=== PATIENT | male | born 1945 | race Caucasian/White ===

== ENCOUNTER 2020-12-24 09:39 | IRF | payer MEDICARE, SELFPAY ==
--- NOTE | ~2020-12-24 | XR_ITS ---
EXAMINATION: XR knee RT 3V DATE: 12/26/2020 18:45 INDICATION: Fall onto the stump of a right wvxcw-bqb-ixgh amputation. TECHNIQUE: Anteroposterior, oblique and crosstable lateral views of the right knee were obtained COMPARISON: None. FINDINGS: Right total knee arthroplasty without patellar resurfacing which is in near-anatomic alignment with p eriprosthetic loosening or infection. There is also been prior aynaj-uvt-myjw amputation with sharp o steotomy margins at the proximal metadiaphyseal regions of the right tibia and fibula. Small amount o f heterotopic ossification in the surrounding soft tissues. No fracture. No right knee joint effusion . There are sclerotic osseous lesions along the right femoral and popliteal arteries. Likely prior ar terial bypass grafting. IMPRESSION: 1. Postoperative changes of prior right total knee arthroplasty and pwerj-dtl-cmla amputation. No acu te osseous abnormality. Reviewed, dictated and finalized at location A. IMPRESSION: 1. Postoperative changes of prior right total knee arthroplasty and below-the-k nee amputation. No acute osseous abnormality.
[2020-12-24 09:11] VITALS: BP 123/59; PULSE 62; RESP 20; TEMP 36; O2SAT 95; BMI 30.6
--- NOTE | 2020-12-24 10:30 | ADMGEN ---
This patient, Bernardino Ricci, was admitted to [facility] Room 226-02. Patient/family oriented to hospital policies and general routines including ID bracelet, bed and alarms, visiting hours, pain management, procedures, bathroom and other care routines, personal items, smoking policy, room service/diet, and visiting hours. Information on how to activate the Rapid Response Team has been discussed. Patient/Family are encouraged to report perceived risks to care and to ask questions if they do not understand what they are told or what they should do.
[2020-12-24 12:22] VITALS: PULSE 62; RESP 20; O2SAT 95
--- NOTE | 2020-12-24 13:09 | WPDREHABHP ---
H&P: HPI History of Present Illness Date/Time: 12/24/20 13:09 Chief Complaint: Right below-knee amputation Narrative: HISTORY OF PRESENT ILLNESS: The patient's primary rehab impairment category is 10 amputation lower extremity The etiologic diagnosis is peripheral vascular disease I saw this patient [id number] on 12/24/2020 The patient is a 75-year-old male with past medical history significant for osteoarthritis, rheumatoid arthritis, hypertension, chronic kidney disease and peripheral vascular disease who underwent a right below-knee amputation on 09/21/[address] Rothman vascular surgeon at [facility]. Patient then went to the rehab [place] [facility] [place]. Patient received his new right transtibial prosthesis on 12/19/2020 from [facility] in [facility]. Patient has been wearing a compression stump metal patternmaker all day. The patient lives alone and has support from his daughter and DESTINI Auguste. He receives assistance from a Help at Home through department of aging. He receives 3 days a week for a total of 10 hours a week. Prior to this patient's was at and modified independent to min assist level. Patient's overall goal is to play golf and walk the green. Patient is requiring intensive therapy to restore loss function due to provision of his new prosthetic leg in order to maximize his functional level of independence and quality of life. The complexity of the patient's needs require an inpatient rehab stay with a physician lead inter disciplinary team approach. Skilled physical therapy will address gait training, mobility training, transfer training, stair training, balance retraining, car transfer training, progressive lower extremity strengthening, and they will assist for assistive device needs and develop a home exercise program. [facility] prosthetics is also available for any bracing or prosthetic needs or adjustments. Occupational therapy will address ADLs, precautions and safety education, functional ability, DME education, progressive upper extremity strengthening, balance, endurance, energy conservation and work simplification training along with family training. Patient will greatly benefit from an intensive 5 day program for prosthetic training. FALLS OR SURGERIES: The patient has had major surgery in the last 100 days consisting of a right below-knee amputation. Patient has had no falls or injuries in the last year PRIOR LEVEL OF FUNCTION: Eating was [INDEPENDENT] Oral Care was independent Toileting Hygiene was independent Shower/Bathing was and Upper Body Dressing was INDEPENDENT Lower Body Dressing was independent Footwear is independent. Rolling Left and Right was [INDEPENDENT] Sit to Lying was [INDEPENDENT] Lying to Sitting was [INDEPENDENT] Sit to Stand was independent Bed to Chair Transfers was independent Toilet Transfers was independent Walking was independent 500 ft prior to amputation Wheelchair Mobility was [NOT APPLICABLE PRIOR TO ADMISSION] Stairs were [INDEPENDENT] CURRENT LEVEL OF FUNCTION: Eating was independent Oral Care was supervision Toileting Hygiene was partial to mod assist Shower/Bathing was partial to mod assist Upper Body Dressing was independent Lower Body Dressing was partial to mod assistance in standing Donning/Orient Footwear was partial to mod assistance in standing Rolling Left and Right was independent Sit to Lying was independent Lying to Sitting was independent Sit to Stand was partial to mod assist Bed to Chair Transfers were partial to mod assist Toilet Transfers were partial to mod assist Walking was 15 ft within the parallel bars Wheelchair Mobility was not tested Stairs were not tested GOALS: Our therapists will evaluate the patient and establish the goals. However, upon pre-admission screening, the expected goals were to be [INDEPENDENT] with self-care, [INDEPENDENT] with transfers, and [INDEPENDENT] with functional mobility
--- NOTE | 2020-12-24 13:53 | PHAR ---
The patient's home med of Quinapril 20mg has been verified.
[2020-12-24 14:00] VITALS: BP 154/62; PULSE 62; RESP 20; TEMP 35.9; O2SAT 95
--- NOTE | 2020-12-24 19:29 | RPD ---
INDIVIDUALIZED PLAN OF CARE FOR Bernardino Ricci Brief Synthesis of Pre-Admission Screen, Post-Admission Evaluation and Therapy Evaluations: The patient presents to rehab for prosthetic training program from peripheral vascular disease s/p right BKA. The patient received new prosthesis through [facility]. Comorbidities include PVD, rheumatoid and osteoarthritis, phantom pain, HTN, CKD, DDD, GERD, HLD, HTN, obesity, PAD, and tobacco use. The complexity of the patient's needs require an inpatient rehab hospital stay with a physician-led interdisciplinary team approach. The patient?s needs will be best met in an intensive program vs. at a lower level of care. The patient requires physician services for medical oversight, coordination of care, and pain management. His medical status is subject to change given a sudden dramatic cha0ge in activity level. The patient requires nursing services for infection protection, medication management, skin integrity management and care, and patient education. He will require close monitoring of his hypertension and CKD as well as his skin integrity in light of this change in mobility Deficits include: ADLs, Balance, Endurance, Family Training/Education, Mobility, Pain Management, ROM, Safety, Strength, and Transfers Lamp Shade Maker/Case Management for: Discharge Planning and Patient/Family Counseling Physical Therapy: 5 days per week for 90 minutes. Treatments may include: Therapeutic Exercise, Gait Training, Neuromuscular Re-education, Transfer Training, Community Reintegration, Bed Mobility, Patient/Family Education, Wheelchair Mobility Group Therapy/Concurrent Therapy Rationales: -Improve attention span during functional activities in a distracted environment. -Enhance problem solving and/or adequate judgment skills during functional activities in a distracted environment. -Promote increased safety awareness in a distracted environment to reduce fall risk with functional tasks, transfers, and ambulation to allow a more safe, self-sufficient return to the home environment. -Improve dynamic balance skills to promote safety and independence with functional activities in a distracted environment for maximum gain. Occupational Therapy: 5 days per week for 90 minutes. Treatments may include: Therapeutic Exercise, Therapeutic Activity, Cognitive Training, Self-Care Transfer Training, Community Reintegration, Home Management, Patient/Family Education, Wheelchair Mobility Training, Energy Conservation Training Group Therapy/Concurrent Therapy Rationales: -Allow therapist to observe and teach generalization and carry-over of skills learned in individual therapy. -Enhance problem solving and sequencing skills during therapeutic activities in a distracted environment. -Promote increased safety awareness in a realistic setting to reduce fall risk with functional tasks due to visual and verbal distractions. -Increase functional level with ADLs, ADL transfers and use of adaptive equipment through therapeutic activities with others while promoting safety to allow a more safe, self-sufficient return home. Medical Prognosis: Good Anticipated Length of Stay: 5 days Rehab Goals: Eating Goal: 06-Independent Oral Hygiene Goal: 06-Independent Toileting Hygiene Goal: 06-Independent Shower/Bathe Self Goal: 06-Independent Upper Body Dressing Goal: 06-Independent Lower Body Dressing Goal: 06-Independent Putting On/Taking Off Footwear Goal: 06-Independent Rolling Left and Right Goal: 06-Independent Sit to Lying Goal: 06-Independent Lying to Sitting on Side of Bed Goal: 06-Independent Sit to Stand Goal: 06-Independent Chair/Brg-xv-Xbrpd Transfer Goal: 06-Independent Toilet Transfer Goal: 06-Independent Car Transfer Goal: 06-Independent Walk 10' Goal: 06-Independent Walk 50' with Two Turns Goal: 06-Independent Walk 150' Goal: 06-Independent Walk 10' on Uneven Surface Goal: 06-Independent 1 Step (Curb) Goal: 06-Independent 4 Steps Goal: 06
[2020-12-24 22:00] VITALS: BP 150/65; PULSE 56; RESP 16; TEMP 36.1; O2SAT 98
[2020-12-25 05:05] LABS: Basophils Absolute Auto 0.1 K/mm3 (0.0-0.1); Eosinophils Absolute Auto 0.4 K/mm3 (0-0.3); Hematocrit 36.1 % (42.0-52.0); Hemoglobin 11.8 g/dL (14.0-18.0); Immature Granulocyte Absolute 0.01 K/mm3 (0.00-0.031); Immature Granulocyte Percent A 0.2 % (0-0.5); Lymphocytes Percent Auto 38.5 % (18.3-44.2); Mean Corpuscular HGB Conc 32.7 g/dl (32-36); Mean Corpuscular Hemoglobin 29.3 pg (26-34); Mean Corpuscular Volume 89.6 fl (80-100); Mean Platelet Volume 12.2 fl (7.4-10.4); Monocytes Absolute Auto 0.8 K/mm3 (0.1-0.6); Monocytes Percent Auto 12.6 % (2.6-8.5); Neutrophils Absolute Auto 2.4 K/mm3 (1.3-6.7); Neutrophils Percent Auto 40.7 % (45.5-73.1); Platelet Count Result 152 k/mm3 (150-375); Red Blood Count 4.03 M/mm3 (4.6-6.20); Red Cell Distribution Width 16.8 % (11.5-14.5)
[2020-12-25 05:12] LABS: Alanine Aminotransferase 12 U/L (4-50); Albumin Level 3.5 g/dL (3.5-5.1); Alkaline Phosphatase 72 U/L (38-126); Anion Gap 4 mmol/L (8-16); Aspartate Amino Transferase 24 U/L (17-59); Bilirubin,Total 0.3 mg/dL (0.2-1.3); Blood Urea Nitrogen 23 mg/dL (9-20); Calcium 9.3 mg/dL (8.4-10.2); Carbon Dioxide 28 mmol/L (22-30); Chloride 108 mmol/L (98-107); Estimated CRCL calculation 52 ml/min; Estimated Glomerular Filt Rate 59; Glucose 93 mg/dL (75-110); Potassium 4.1 mmol/L (3.4-5.0); Sodium 140 mmol/L (137-145)
[2020-12-25 06:00] VITALS: BP 178/62; PULSE 68; RESP 16; TEMP 36.1; O2SAT 98
[2020-12-25] MEDS: UMECLIDINIUM/VILANTEROL 62.5-25 MCG ELLIPTA 1 PUFF INHALATION (08:49)
[2020-12-25 09:18] VITALS: PULSE 68
[2020-12-25] MEDS: ASPIRIN 81 MG ENTERIC TABLET PO (09:18)
[2020-12-25] MEDS: atenoloL 50 MG TABLET PO (09:18)
[2020-12-25] MEDS: FOLIC ACID 1 MG TABLET PO (09:18)
[2020-12-25] MEDS: ATORVASTATIN 40 MG TABLET PO (09:20)
--- NOTE | 2020-12-25 11:28 | WPDNEURORHBP ---
Subjective Date/time seen: 12/25/20 11:28 Interval history: DX Right BKA The patient is a 75-year-old male with past medical history significant for osteoarthritis, rheumatoid arthritis, hypertension, chronic kidney disease and peripheral vascular disease who underwent a right below-knee amputation on 09/21/[address] Rothman vascular surgeon at [place]. Patient then went to the rehab [place] [facility] [place]. Patient received his new right transtibial prosthesis on 12/19/2020 from [facility] in [facility]. Patient has been wearing a compression stump cooperer all day. The patient lives alone and has support from his daughter and DESTINI Auguste. He receives assistance from a Help at Home through department of aging. He receives 3 days a week for a total of 10 hours a week. Prior to this patient's was at and modified independent to min assist level. Patient's overall goal is to play golf and walk the green. Patient is requiring intensive therapy to restore loss function due to provision of his new prosthetic leg in order to maximize his functional level of independence and quality of life. The complexity of the patient's needs require an inpatient rehab stay with a physician lead inter disciplinary team approach. Skilled physical therapy will address gait training, mobility training, transfer training, stair training, balance retraining, car transfer training, progressive lower extremity strengthening, and they will assist for assistive device needs and develop a home exercise program. [facility] prosthetics is also available for any bracing or prosthetic needs or adjustments. Occupational therapy will address ADLs, precautions and safety education, functional ability, DME education, progressive upper extremity strengthening, balance, endurance, energy conservation and work simplification training along with family training. Patient will greatly benefit from an intensive 5 day program for prosthetic training. 12/25/20 patient voices no complaints. Team Conference: Patient is at contact guard with ADLs. Patient is at contact guard with transfers gait and stairs. Barriers include endurance, balance deficits,. Prosthesis was adjusted by Parul from [facility] this morning. we are anticipating patient to be modified independent with all activities daily living gait and mobility. Discharge date will be Thursday12/29/2020 patient would benefit from outpatient physical therapy. Review of Systems Constitutional: Constitutional: Reports no additional constitutional complaints Functional Status Ambulation Ability Ability to Ambulate 10 Feet: Standby Assistance Ability to Ambulate 50 Feet With 2 Turns: Standby Assistance Ability to Ambulate 150 Feet: Contact Guard Ambulation Assistive Devices: Walker, Wheeled Exam Narrative: Exam Narrative: patient is pleasant and in no acute distress. Head is normocephalic. External ocular muscles are intact. Neck is supple. Speech is fluent. Heart rate and rhythm is regular. Lungs are clear. Abdomen is obese. Upper extremity strength are 5/5. Right lower extremity strength shows a well-healed right total knee incision and signs of graft most likely from bypass surgery. Right below-knee amputation incision is completely healed. Shape being of the stump is excellent. Strength is 4/4. Left lower extremity strength is 4+ out of 5. No edema is noted. Objective Data Vital Signs Vital Signs: Vital Signs - 24 hr 12/24/20 12:22 12/24/20 14:00 12/24/20 22:00 Temperature 35.9 C L 36.1 C L Pulse Rate 62 62 56 L Respiratory Rate 20 20 16 Blood Pressure 154/62 H 150/65 H Pulse Oximetry 95 95 98 12/25/20 06:00 12/25/20 09:18 Temperature 36.1 C L Pulse Rate 68 68 Respiratory Rate 16 Blood Pressure 178/62 H Pulse Oximetry 98 Intake/Output Intake/Output: Intake & Output 12/22/20 12/23/20 12/24/20 12/25/20 23:59 23:59 23:59 23:59 Intake Total 480 480 Balance 480 480 Meds/Results Medi
[2020-12-25 12:18] VITALS: BMI 30.6
--- NOTE | 2020-12-25 12:53 | PCNSR ---
On 12/25/20, the student,Elis Plummer, provided care and completed [facility] documentation on this patient. I have reviewed the student's documentation and agree with the findings.
[2020-12-25 13:25] VITALS: BP 165/62; PULSE 67; RESP 18; TEMP 36.4; O2SAT 97
--- NOTE | 2020-12-25 17:21 | PM.IMCN ---
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: Code(s): I70.203 - Unspecified atherosclerosis of ramona arteries of extremities, bilateral legs Status: Acute (3) History of total right knee replacement: Code(s): Z96.651 - Presence of right artificial knee joint Status: Acute (4) Emphysema lung: Code(s): J43.9 - Emphysema, unspecified Status: Acute (5) Smoker: Code(s): F17.200 - Nicotine dependence, unspecified, uncomplicated Status: Acute (6) Hyperlipidemia: Code(s): E78.5 - Hyperlipidemia, unspecified Status: Acute (7) Hypertension: Code(s): I10 - Essential (primary) hypertension Status: Acute (8) Rheumatoid arthritis: Code(s): M06.9 - Rheumatoid arthritis, unspecified Status: Acute (9) Osteoarthritis: Code(s): M19.90 - Unspecified osteoarthritis, unspecified site Status: Acute (10) GERD (gastroesophageal reflux disease): Code(s): K21.9 - Gastro-esophageal reflux disease without esophagitis Status: Acute (11) Degenerative disc disease: Status: Acute (12) Peripheral vascular disease: Code(s): I73.9 - Peripheral vascular disease, unspecified Status: Acute (13) Chronic kidney disease: Code(s): N18.9 - Chronic kidney disease, unspecified Status: Acute (14) History of bilateral carpal tunnel release: Code(s): Z98.890 - Other specified postprocedural states Status: Acute (15) Hx of cholecystectomy: Code(s): Z90.49 - Acquired absence of other specified parts of digestive tract Status: Acute Additional Plan status post right BKA 02/2021 Hypertension Hyperlipidemia Current smoker Emphysema long Rheumatoid arthritis Osteoarthritis GERD Peripheral vascular disease Chronic kidney disease stage 3 Plan: Continue atenolol quinapril and hydrochlorothiazide for his high blood pressure Continue bronchodilators Continue atorvastatin continue Continue aspirin continue to monitor his blood pressure and adjust the medication as needed Thank you for the consultation will follow along with you HPI Data of Consult Consult date: 12/25/20 Requesting Physician: Meeta London DO Primary Care Provider: Ron Smith, Consult Narrative Narrative: Reason for consultation: Medical management Bernardino Ricci is a 75 year old male who is admitted to the rehab facility for gait training. He has a past medical history significant for osteoarthritis, rheumatoid arthritis, hypertension, chronic kidney disease, peripheral vascular disease and underwent a right below-knee amputation on 09/21/2020 at [facility]. He got his new right transtibial prosthesis on 12/19/2020 from [facility] in [facility] and is here for gait training with the prosthesis. He denies any chest pain shortness of breath abdominal pain nausea vomiting fever chills. he is continued on all his usual home medication. hospitalist team is consulted for continued medical management here while undergoing therapy Review of Systems Review of Systems: Narrative: - CONSTITUTIONAL: Denies weight loss, fever and chills. - HEENT: Denies changes in vision and hearing - RESPIRATORY: Denies SOB and cough. - CV: Denies palpitations and CP. - GI: Denies abdominal pain, nausea, vomiting and diarrhea. - : Denies dysuria and urinary frequency. - MSK: Denies myalgia and joint pain. - SKIN: Denies rash and pruritus. - NEUROLOGICAL: Denies headache and syncope. - PSYCHIATRIC: Denies recent changes in mood. Denies anxiety and depression. All systems reviewed & are unremarkable except as noted in HPI and below PMFS
[2020-12-25 22:00] VITALS: BP 133/54; PULSE 58; RESP 18; TEMP 35.9; O2SAT 97
[2020-12-26 06:00] VITALS: BP 130/63; PULSE 67; RESP 18; TEMP 35.9; O2SAT 97
[2020-12-26 08:41] VITALS: PULSE 67
[2020-12-26] MEDS: ASPIRIN 81 MG ENTERIC TABLET PO (08:41)
[2020-12-26] MEDS: FOLIC ACID 1 MG TABLET PO (08:41)
[2020-12-26] MEDS: atenoloL 50 MG TABLET PO (08:41)
[2020-12-26] MEDS: UMECLIDINIUM/VILANTEROL 62.5-25 MCG ELLIPTA 1 PUFF INHALATION (08:43)
[2020-12-26 14:00] VITALS: BP 153/61; PULSE 68; RESP 16; TEMP 36.5; O2SAT 98
--- NOTE | 2020-12-26 16:47 | WPDNEURORHBP ---
Subjective Date/time seen: 12/26/20 16:47 Interval history: Patient had fall in bathroom. Patient denies loss of consciousness. Patient admits to stump pain. Review of Systems Review of Systems: All systems reviewed & are unremarkable except as noted in HPI and below Functional Status Ambulation Ability Ability to Ambulate 10 Feet: Independent Ability to Ambulate 50 Feet With 2 Turns: Independent Ability to Ambulate 150 Feet: Independent Ambulation Assistive Devices: Cane and Walker, Wheeled Transfers Ability Ability to Transfer In/Out of Chair: Independent Exam Narrative: Exam Narrative: patient is pleasant and in no acute distress. External ocular muscles are intact. Neck is supple. Speech is fluent. Heart rate and rhythm is regular. Lungs are clear. Abdomen is obese. Upper extremity strength are 5/5. Right lower extremity strength shows a well-healed right total knee incision and signs of graft most likely from bypass surgery. Patient has small abrasion to distal stump. No bruising is noted. NO pain with ROM of touching of stump. Right side of head reveals redness. No bump noted. Right below-knee amputation incision is completely healed. Shape being of the stump is excellent. Strength is 4/4. Left lower extremity strength is 4+ out of 5. No edema is noted. Objective Data Vital Signs Vital Signs: Vital Signs - 24 hr 12/25/20 22:00 12/26/20 06:00 12/26/20 08:41 Temperature 35.9 C L 35.9 C L Pulse Rate 58 L 67 67 Respiratory Rate 18 18 Blood Pressure 133/54 L 130/63 Pulse Oximetry 97 97 12/26/20 14:00 Temperature 36.5 C Pulse Rate 68 Respiratory Rate 16 Blood Pressure 153/61 H Pulse Oximetry 98 Intake/Output Intake/Output: Intake & Output 12/23/20 12/24/20 12/25/20 12/26/20 23:59 23:59 23:59 23:59 Intake Total 480 1200 720 Balance 480 1200 720 Meds/Results Medications: Active Medications Generic Name Dose Route Start Last Admin Trade Name Freq PRN Reason Stop Dose Admin Aspirin 81 mg 12/25/20 09:00 12/26/20 08:41 Aspirin 81 Mg Enteric Tablet PO 81 mg DAILY LAURA Administration Atenolol 50 mg 12/25/20 09:00 12/26/20 08:41 Atenolol 50 Mg Tablet PO 50 mg DAILY LAURA Administration Atorvastatin Calcium 40 mg 12/24/20 09:00 12/25/20 09:20 Atorvastatin 40 Mg Tablet PO 40 mg Q48H LAURA Administration Folic Acid 1 mg 12/25/20 09:00 12/26/20 08:41 Folic Acid 1 Mg Tablet PO 1 mg DAILY LAURA Administration Umeclidinium/Vilanterol 1 puff 12/25/20 08:00 12/26/20 08:43 Umeclidinium/Vilanterol 62.5-25 Mcg Ellipta INHALATION 1 puff DAILYRT LAURA Administration Progress Note: A&P Assessment and Plan (1) Amputation of right lower extremity below knee: Code(s): S88.111A - Complete traumatic amputation at level between knee and ankle, right lower leg, initial encounter Status: Acute Assessment and Plan: PT OT nursing (2) 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 Patient believes he will be able to quit smoking but and does not wish to proceed with any counseling (6) Hyperlipidemia: Code(s): E78.5 - Hyperlipidemia, unspecified Status: Acute Assessment and Plan: Lipitor (7) Hypertension: Code(s): I10 - Essential (primary) hypertension S
[2020-12-26 22:00] VITALS: BP 162/72; PULSE 58; RESP 18; TEMP 36.4; O2SAT 98
[2020-12-27 06:00] VITALS: BP 181/83; PULSE 62; RESP 18; TEMP 36.8; O2SAT 98
[2020-12-27 09:01] VITALS: PULSE 62
[2020-12-27] MEDS: atenoloL 50 MG TABLET PO (09:01)
[2020-12-27] MEDS: ASPIRIN 81 MG ENTERIC TABLET PO (09:01)
[2020-12-27] MEDS: FOLIC ACID 1 MG TABLET PO (09:01)
[2020-12-27] MEDS: ACETAMINOPHEN 325 MG TABLET 650 MG PO (09:02)
[2020-12-27] MEDS: UMECLIDINIUM/VILANTEROL 62.5-25 MCG ELLIPTA 1 PUFF INHALATION (09:31)
[2020-12-27 10:09] VITALS: BP 158/92; PULSE 86; RESP 18; TEMP 36.7; O2SAT 100
--- NOTE | 2020-12-27 12:22 | WPDNEURORHBP ---
Subjective Date/time seen: 12/27/20 12:22 Interval history: DX Right BKA The patient is a 75-year-old male with past medical history significant for osteoarthritis, rheumatoid arthritis, hypertension, chronic kidney disease and peripheral vascular disease who underwent a right below-knee amputation on 09/21/[address] Rothman vascular surgeon at [place]. Patient then went to the rehab [facility] [place]. Patient received his new right transtibial prosthesis on 12/19/2020 from [facility] in [facility]. Patient has been wearing a compression stump shop foreman all day. The patient lives alone and has support from his daughter and DESTINI Auguste. He receives assistance from a Help at Home through department of aging. He receives 3 days a week for a total of 10 hours a week. Prior to this patient's was at and modified independent to min assist level. Patient's overall goal is to play golf and walk the green. Patient is requiring intensive therapy to restore loss function due to provision of his new prosthetic leg in order to maximize his functional level of independence and quality of life. The complexity of the patient's needs require an inpatient rehab stay with a physician lead inter disciplinary team approach. Skilled physical therapy will address gait training, mobility training, transfer training, stair training, balance retraining, car transfer training, progressive lower extremity strengthening, and they will assist for assistive device needs and develop a home exercise program. [facility] prosthetics is also available for any bracing or prosthetic needs or adjustments. Occupational therapy will address ADLs, precautions and safety education, functional ability, DME education, progressive upper extremity strengthening, balance, endurance, energy conservation and work simplification training along with family training. Patient will greatly benefit from an intensive 5 day program for prosthetic training. 12/25/20 patient voices no complaints. Team Conference: Patient is at contact guard with ADLs. Patient is at contact guard with transfers gait and stairs. Barriers include endurance, balance deficits,. Prosthesis was adjusted by Parul from [facility] this morning. we are anticipating patient to be modified independent with all activities daily living gait and mobility. Discharge date will be Thursday12/29/2020 patient would benefit from outpatient physical therapy. 12/26/20Patient had fall in bathroom. Patient denies loss of consciousness. Patient admits to stump pain. X-rays are negative for fracture. Small abrasion is noted to the distal end of the stump. 12/27/20. Mild bruising is noted to the stump. Stump is swollen. Patient is now in a 1 ply sock or yesterday patient was 8-10 ply sock. Patient denies any headaches any other complaints except for stump pain. Patient is able to wear his prosthesis and is approaching independence with transfers and gait. Balance is good Review of Systems Review of Systems: All systems reviewed & are unremarkable except as noted in HPI and below Functional Status Ambulation Ability Ability to Ambulate 10 Feet: Independent Ability to Ambulate 50 Feet With 2 Turns: Independent Ability to Ambulate 150 Feet: Independent Ambulation Assistive Devices: Walker, Wheeled Transfers Ability Ability to Transfer In/Out of Chair: Independent Exam Narrative: Exam Narrative: patient is pleasant and in no acute distress. External ocular muscles are intact. Neck is supple. Speech is fluent. Heart rate and rhythm is regular. Lungs are clear. Abdomen is obese. Upper extremity strength are 5/5. Right lower extremity strength shows a well-healed right total knee incision and signs of graft most likely from bypass surgery. Patient has small abrasion to distal stump. Small amount of bruising is noted. Mild sensitivity to distal stump. Right below-knee amputation incision is completely healed. Shape being of the sowmya
[2020-12-27 14:00] VITALS: BP 137/52; PULSE 62; RESP 18; TEMP 36.4; O2SAT 97
[2020-12-27 22:00] VITALS: BP 163/51; PULSE 59; RESP 18; TEMP 36.4; O2SAT 96
[2020-12-28 06:00] VITALS: BP 163/56; PULSE 67; RESP 18; TEMP 36.1; O2SAT 97
--- NOTE | 2020-12-28 08:50 | PCRCNOTE ---
pt not in room for tx
[2020-12-28] MEDS: ASPIRIN 81 MG ENTERIC TABLET PO (09:34)
[2020-12-28 09:35] VITALS: PULSE 67
[2020-12-28] MEDS: FOLIC ACID 1 MG TABLET PO (09:35)
[2020-12-28] MEDS: atenoloL 50 MG TABLET PO (09:35)
[2020-12-28] MEDS: ATORVASTATIN 40 MG TABLET PO (09:35)
--- NOTE | 2020-12-28 09:42 | PCRCNOTE ---
Rn called pt back in room, tubed med to IMU for Rn to give pt.
[2020-12-28] MEDS: UMECLIDINIUM/VILANTEROL 62.5-25 MCG ELLIPTA 1 PUFF INHALATION (09:43)
--- NOTE | 2020-12-28 12:00 | WPDNEURORHBP ---
Subjective Date/time seen: 12/28/20 12:00 Interval history: DX Right BKA The patient is a 75-year-old male with past medical history significant for osteoarthritis, rheumatoid arthritis, hypertension, chronic kidney disease and peripheral vascular disease who underwent a right below-knee amputation on 09/21/[address] Rothman vascular surgeon at [place]. Patient then went to the rehab [facility] [place]. Patient received his new right transtibial prosthesis on 12/19/2020 from [facility] in [facility]. Patient has been wearing a compression stump dry wall applicator all day. The patient lives alone and has support from his daughter and DESTINI Auguste. He receives assistance from a Help at Home through department of aging. He receives 3 days a week for a total of 10 hours a week. Prior to this patient's was at and modified independent to min assist level. Patient's overall goal is to play golf and walk the green. Patient is requiring intensive therapy to restore loss function due to provision of his new prosthetic leg in order to maximize his functional level of independence and quality of life. The complexity of the patient's needs require an inpatient rehab stay with a physician lead inter disciplinary team approach. Skilled physical therapy will address gait training, mobility training, transfer training, stair training, balance retraining, car transfer training, progressive lower extremity strengthening, and they will assist for assistive device needs and develop a home exercise program. [facility] prosthetics is also available for any bracing or prosthetic needs or adjustments. Occupational therapy will address ADLs, precautions and safety education, functional ability, DME education, progressive upper extremity strengthening, balance, endurance, energy conservation and work simplification training along with family training. Patient will greatly benefit from an intensive 5 day program for prosthetic training. 12/25/20 patient voices no complaints. Team Conference: Patient is at contact guard with ADLs. Patient is at contact guard with transfers gait and stairs. Barriers include endurance, balance deficits,. Prosthesis was adjusted by Parul from [facility] this morning. we are anticipating patient to be modified independent with all activities daily living gait and mobility. Discharge date will be Thursday12/29/2020 patient would benefit from outpatient physical therapy. 12/26/20Patient had fall in bathroom. Patient denies loss of consciousness. Patient admits to stump pain. X-rays are negative for fracture. Small abrasion is noted to the distal end of the stump. 12/27/20. Mild bruising is noted to the stump. Stump is swollen. Patient is now in a 1 ply sock or yesterday patient was 8-10 ply sock. Patient denies any headaches any other complaints except for stump pain. Patient is able to wear his prosthesis and is approaching independence with transfers and gait. Balance is good 12/28/20 Patient is feeling fine. Patient has mild discomfort to the stump. Edema to the stump has markedly decreased. Bruising is very mild. Abrasion to the distal area is unchanged. Overall endurance is markedly improved. Review of Systems Review of Systems: All systems reviewed & are unremarkable except as noted in HPI and below Functional Status Ambulation Ability Ability to Ambulate 10 Feet: Independent Ability to Ambulate 50 Feet With 2 Turns: Independent Ability to Ambulate 150 Feet: Independent Ambulation Assistive Devices: Walker, Wheeled Transfers Ability Ability to Transfer In/Out of Chair: Independent Exam Narrative: Exam Narrative: patient is pleasant and in no acute distress. External ocular muscles are intact. Neck is supple. Speech is fluent. Heart rate and rhythm is regular. Lungs are clear. Abdomen is obese. Upper extremity strength are 5/5. Right lower extremity strength shows a well-healed right total knee incision and signs of graft mos
[2020-12-28 14:00] VITALS: BP 169/65; PULSE 66; RESP 18; TEMP 36.1; O2SAT 99
[2020-12-28 22:00] VITALS: BP 176/59; PULSE 61; RESP 16; TEMP 36.5; O2SAT 99
[2020-12-29 06:00] VITALS: BP 179/61; PULSE 60; RESP 16; TEMP 36.7; O2SAT 97
--- NOTE | 2020-12-29 07:53 | PM.DS ---
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 Patient believes he will be able to quit smoking but and does not wish to proceed with any counseling (6) Hyperlipidemia: Code(s): E78.5 - Hyperlipidemia, unspecified Status: Acute Assessment and Plan: Lipitor (7) Hypertension: Code(s): I10 - Essential (primary) hypertension Status: Acute Assessment and Plan: atenolol 50 mg daily. Patient with elevated BP would recommend followup and recording of BP for the next few weeks and then to review with PCP. Counseled patient prior to discharge to check BP at home and f/u with PCP. (8) Rheumatoid arthritis: Code(s): M06.9 - Rheumatoid arthritis, unspecified Status: Acute (9) Osteoarthritis: Code(s): M19.90 - Unspecified osteoarthritis, unspecified site Status: Acute (10) Skin cancer: Code(s): C44.90 - Unspecified malignant neoplasm of skin, unspecified Status: Acute (11) GERD (gastroesophageal reflux disease): Code(s): K21.9 - Gastro-esophageal reflux disease without esophagitis Status: Acute (12) Degenerative disc disease: Status: Acute (13) Peripheral vascular disease: Code(s): I73.9 - Peripheral vascular disease, unspecified Status: Acute (14) Chronic kidney disease: Code(s): N18.9 - Chronic kidney disease, unspecified Status: Acute Assessment and Plan: monitor (15) History of bilateral carpal tunnel release: Code(s): Z98.890 - Other specified postprocedural states Status: Acute (16) Hx of cholecystectomy: Code(s): Z90.49 - Acquired absence of other specified parts of digestive tract Status: Acute (17) Fall: Code(s): W19.XXXA - Unspecified fall, initial encounter Status: Acute Assessment and Plan: Abrasion noted to distal stump. Minimal tenderness noted to stump distally. Edema noted. DS: Summary Hospital Course Hospital Course: DX Right BKA The patient is a 75-year-old male with past medical history significant for osteoarthritis, rheumatoid arthritis, hypertension, chronic kidney disease and peripheral vascular disease who underwent a right below-knee amputation on 09/21/[address] Rothman vascular surgeon at [place]. Patient then went to the rehab [facility]. Patient received his new right transtibial prosthesis on 12/19/2020 from [facility] in [facility]. Patient has been wearing a compression stump rn first assist all day. The patient lives alone and has support from his daughter and DESTINI Auguste. He receives assistance from a Help at Home through department of aging. He receives 3 days a week for a total of 10 hours a week. Prior to this patient's was at and modified independent to min assist level. Patient's overall goal is to play golf and walk the green. Patient is requiring intensive therapy to restore loss function du
--- NOTE | 2020-12-29 08:17 | PC.NURSE ---
Patient wanted to be discharged as soon as this nurse came on duty at 0730. Patient did not want to wait for meds said he took them already. Patient signed paper work and left via own car.
== END 2020-12-29 07:45 | disposition home or self-care (01) | DRG 561 ==
PROVIDERS: Admitting Provider Physical Medicine & Rehabilitation; PCP Internal Medicine; Visit Provider Physical Medicine & Rehabilitation
DX: Z47.81 Encounter for orthopedic aftercare following surgical amputation (principal); Z89.511 Acquired absence of right leg below knee; S80.211A Abrasion, right knee, initial encounter; W19.XXXA Unspecified fall, initial encounter; I73.9 Peripheral vascular disease, unspecified; I12.9 Hypertensive chronic kidney disease with stage 1 through stage 4 chronic kidney disease, or unspecified chronic kidney disease; E78.5 Hyperlipidemia, unspecified; F17.210 Nicotine dependence, cigarettes, uncomplicated; J43.9 Emphysema, unspecified; K21.9 Gastro-esophageal reflux disease without esophagitis; M19.90 Unspecified osteoarthritis, unspecified site; M06.9 Rheumatoid arthritis, unspecified; N18.30 Chronic kidney disease, stage 3 unspecified; Z85.828 Personal history of other malignant neoplasm of skin
CPT/HCPCS: 36415; 73562; 80053; 85025; 94640; 97110; 97116; 97161; 97165; 97530; 97535; 97542; 97761; A9270

== ENCOUNTER 2021-04-03 10:30 | Outpatient (RCR) | payer MEDICARE, SELFPAY ==
--- NOTE | 2021-01-03 17:17 | PTOPEVAL ---
PHYSICAL THERAPY EVALUATION AND PLAN OF CARE Thank you for referring Bernardino Ricci to [facility].? The patient is scheduled to be seen for therapy?2x/week for 6 weeks. Please review, sign, date and return this plan of care GABRIELA. I agree with and certify that the following plan of care is medically necessary. Referring Physician Date Attending Provider: Meeta London, DO Evaluation Outpatient Past Medical History Cardiovascular History Hx Hypertension Yes Hx Peripheral Vascular Disease Yes Gastrointestinal History Hx Gastroesophageal Reflux Disease Yes Hx Other Gastrointestinal Disorders Yes: hx of stomach ulcers Genitourinary History Hx Renal Disease Yes Musculoskeletal History Hx Arthritis Yes Hx Other Musculoskeletal Disorders Yes: right bka Endocrine History Hx Endocrine Disorders No Significant History Integumentary History Hx Other Skin Disorders Yes: hx of skin cancer Other History Hx Other Medical Conditions Yes: obesity, hx of smoker, right fem pop bypass failed. Hx Other Surgeries Yes: bilateral carpal tunnel, cholecystectomy, hernia repair , ivc filter placeme Evaluation Information Problem Diagnosis right Transtibial amputation; gait training Onset 09/19/2020 Subjective Information right BKA performed in September Query Text:As Reported By Patient/ 2020. Stayed on the rehab unit Family and was discharged last week. He was considered to be inependent on the unit and was walking with a cane until he had a fall in the bathroom. He is now experiencing some pain at the end of the limb and is walking with a walker. Since he has been home, he typically does not wear his prosthetic more than 3 hours total. If he leaves the house, he will wear the prosthetic all day. He has goals to be able to play golf and walk on the green. He wants to be able to walk without an assistive device. Self Report Pain Assessment Right Leg(s) Reported Pain Level 5 Pain Aggravating Factors Walking,Weight Bearing/ Standing Pain Score Pain Score 5: Self Report Interventions Used Interventions Used By Clinicians
--- NOTE | 2021-02-26 10:57 | PTOPEVAL ---
PHYSICAL THERAPY PROGRESS REPORT Thank you for referring Bernardino Ricci to [facility] [place].? The patient is scheduled to be seen for therapy? 1x/week for 4 weeks. Please review, sign, date and return this plan of care GABRIELA. I agree with and certify that the following plan of care is medically necessary. Referring Physician Date Attending Provider: Meeta London, DO Progress Diagnosis right Transtibial amputation; gait training Onset 09/19/2020 Subjective Information right BKA performed in September Query Text:As Reported By Patient/ 2020. reports he is having a Family good day. Did not bring his cane today - states that he is not using it anymore. Continues to have quite a bit of pain in the left hip when walking for 1.5minutes or longer. Cannot stand too long .Does have a sore on the right residual limb that is 1x1. 5inches and stable. Self Report Pain Assessment Right Leg(s) Reported Pain Level 0 Pain Description Pressure Pain Aggravating Factors Walking,Weight Bearing/ Standing Pain Score Pain Score 0: Self Report Interventions Used Interventions Used By Clinicians Exercise,Rest Pain Relief Interventions Used By None Patient Lower Extremity Muscle Strength Testing Hip Strength Right Hip Flexion Strength 5 Normal Hip Extension Strength 4- Good - Hip Abduction Strength 4- Good - Hip Strength Comments performs sit>stand with right foot kicked out to the front. Palpation Assessment Palpation Palpation left glutes indicate trigger points and tightness Gait Assessment Gait Assessment Ambulation Assistive Devices None Orthotic/Prosthetic Devices Right Lower Extremity Prosthesis Weight Bearing Status - Left Full Weight Bearing Status - Right Full Weight Bearing Comment with 5 ply Ambulation Destination In Gym Ambulation Direction Forward Ambulation Surface Level,Smooth Ambulation Ability Independent Cues Needed For Ambulation Verbal Additional Ambulation Comments limited distance due to pain in left leg - fatigue/ tiredness 2 Minute Walk Total Distance Walked (feet) 286 2 Minute Walk Gait Speed Score (feet/ 2.38 second) 2 Ma
--- NOTE | 2021-03-05 11:26 | PCPTNOTE ---
On 03/05/21, the student, Piyush Manley, SPT provided care and completed [facility] documentation on this patient. I have reviewed the student's documentation and agree with the findings.
--- NOTE | 2021-03-26 11:20 | PTOPEVAL ---
PHYSICAL THERAPY PROGRESS REPORT Thank you for referring Bernardino Ricci to [facility].? The patient is scheduled to be seen for therapy? 1x/week for 5 weeks. Please review, sign, date and return this plan of care GABRIELA. I agree with and certify that the following plan of care is medically necessary. Referring Physician Date Attending Provider: Meeta London, DO Diagnosis right Transtibial amputation; gait training Onset 09/19/2020 Subjective Information right BKA performed in September Query Text:As Reported By Patient/ 2020. states that if he felt Family like the prosthetic was perfect, he would be doing very well. Feels like there are still some adjustments that needs made with the prosthetic. Talks about some phantom pain in right ankle after exercise. Also talks about the left hip hurting and getting tired with long walking. Self Report Pain Assessment Right Leg(s) Reported Pain Level 2 Pain Description Pressure Pain Score Pain Score 2: Self Report Interventions Used Interventions Used By Clinicians Exercise Pain Relief Interventions Used By None Patient Lower Extremity Muscle Strength Testing Hip Strength Right Hip Flexion Strength 5 Normal Hip Extension Strength 4- Good - Hip Abduction Strength 3 Fair Hip Strength Comments performs sit>stand with right foot kicked out to the front. single leg stand on right: unable to stand on right without use of UE for support, has severe trunk compensations with leaning to the right Balance Assessment 5 Time Sit to Stand Time in Seconds 20.47 Gait Assessment Gait Pattern Assessment Gait Pattern Trendelenburg Gait Gait Pattern Observed Decreased Weight Shift - Right Other Gait Observations -severe right Trendelenburg 2 Minute Walk Total Distance Walked (feet) 286 2 Minute Walk Gait Speed Score (feet/ 2.38 second) 2 Minute Walk Test Comments continues to need to take a break at 2minutes due to pain in the left hpi General Exercise Side Bilateral Exercise Location hips/trunk Exercise Type
--- NOTE | 2021-04-08 14:35 | PCPTNOTE ---
This treatment is being continued on visit number [id number]. Please see documentation on both accounts to view progress. Completed interventions, outcomes, and problems have been marked as Inactive to facilitate the copying of the Care plan routine for recurring accounts.
== END 2021-04-03 23:59 | disposition home or self-care (01) ==
LOC: ANHPT 10:30
PROVIDERS: PCP Internal Medicine; Visit Provider Physical Medicine & Rehabilitation
DX: R26.9 Unspecified abnormalities of gait and mobility (principal)
CPT/HCPCS: 97110; 97112; 97116; 97161; 97530

== ENCOUNTER 2021-05-15 09:00 | Outpatient (RCR) | payer MEDICARE, SELFPAY ==
--- NOTE | 2021-04-08 14:36 | PCPTNOTE ---
The treatment documented on this account is a continuation of the treatment documented on visit number [id number]. Please see documentation on both accounts to view progress. The Plan of Care has been transitioned and updated within the new V#. I have addressed and agree with the discipline specific Problems, Interventions, and Goals for the current certification period. Completed interventions, outcomes, and problems have been marked as Inactive to facilitate the copying of the Care plan routine for recurring accounts.
--- NOTE | 2021-04-23 10:29 | PCPTNOTE ---
Patient arrived to therapy session stating he had his appointment with Ashley on Thursday. Minimal adjustments were made to the fitting with shaving off some of the cast on the inside around the calf with continued increase pain into stump with limited walking tolerance with fitting. Reported he was suppose to see Destinee but she called in sick for appointment on Thursday. Therapist cancelled appointment this date due to limitation with pain level wearing prothesis and tolerance with increase burning sensation into stump. Will continue with re-eval next week after contacting Ashley to see best options for patient.
--- NOTE | 2021-04-30 11:44 | PTOPEVAL ---
PHYSICAL THERAPY PROGRESS REPORT Thank you for referring Bernardino Ricci to [facility].? Rony is going to participate in a session with myself and the wet process assistant head miller and he is going to have the wound on his knee assessed by the doctor. Please review, sign, date and return this plan of care GABRIELA. I agree with and certify that the following plan of care is medically necessary. Referring Physician Date Attending Provider: Meeta London, Diagnosis right Transtibial amputation; gait training Onset 09/19/2020 Subjective Information Rony continues to have a Query Text:As Reported By Patient/ significant amount of pain in Family the right residual limb.. he attributes it to the socket not feeling like it fits right . I personally have had conversations with the wet process assistant head miller and she states that it looks like it fits from her perspective so the question becomes whether it truly is the fit or if the way he is walking is causing a problem. Rony also continues to have a wound over the patella that appears unchanged. It has been at least 2 months of the exact same shape and size and I have recommended to him to go without the prosthetic in order for it to heal and he is not interested because he does not want to hop around his house without his prosthetic. I Recommend he have a wound care nurse. Pain Assessment Timing of Pain Assessment Timing of Pain Assessment Pre-Treatment Self Report Self Report Pain Level 0 Pain Score Pain Score 0: Self Report Balance Assessment [place] Balance Assessment Sitting to Standing Independent w/out Hands Unsupported Stance Ability Safely- 2 minutes Sitting Unsupported, Feet on Floor Safely- 2 minutes Standing to Sitting Safely, Minimal Hand Use Transfer Ability Safely, Minimal Hand Use Unsupported Stance- Eyes Closed Supervision, 10 seconds Unsupported Stance- Feet Together Independent, 1 minute Reaching Forward while Standing Safely, 5 inches paint crew supervisor Object From Floor Supervision Look Behind Shoulder - Standing Turns Sideways Only Turning 360 Degrees Turns slowly, but
--- NOTE | 2021-05-15 10:08 | PTOPEVAL ---
PHYSICAL THERAPY DISCHARGE NOTE Thank you for referring Bernardino Ricci to [facility] [place] [facility]Please review, sign, date and return this plan of care GABRIELA. I agree with and certify that the following plan of care is medically necessary. Referring Physician Date Attending Provider: Meeta London, DO Discharge Evaluation Information Problem Diagnosis right Transtibial amputation; gait training Onset 09/19/2020 Additional Evaluation Detail Parul from [employer] came to today's appointment to ensure the fit of the prosthetic. She made a couple of adjustments, but in the end we were back at how we started and Rony stated that this was the most comfortable, although still felt some calf tightness. Subjective Information Rony has complaints of calf Query Text:As Reported By Patient/ tightness and some complaints Family of pain on the lateral side of the lower part of the residual limb. Today while walking his greateset complaint is the calf tightness. After conversation we deterimine that he needs to get the ok from wound care to wear his pig sticker at night again so ensure that there is no residual fluid in the lower back part of the calf that is causing the tightness/pain. States that the burning he has was resolved for a few hours after he participated in his first wound care appointment where the put some medication on the wound so possibly once the wound is resolved the burning will resolve also. Pain Assessment Timing of Pain Assessment Timing of Pain Assessment Pre-Treatment Self Report Self Report Pain Level 0 Pain Score Pain Score 0: Self Report Lower Extremity Muscle Strength Testing General Lower Extremity Strength Gross Lower Extremity Strength stands with weight shifted left and states that his left hip gets sore with prolonged WB and walking; weight shifted
== END 2021-05-16 10:49 | disposition home or self-care (01) ==
LOC: ANHPT 09:00
PROVIDERS: PCP Internal Medicine; Visit Provider Physical Medicine & Rehabilitation
DX: R26.9 Unspecified abnormalities of gait and mobility (principal)
CPT/HCPCS: 97110; 97112; 97116; 97530